=== PATIENT | male | born 1925 | race Caucasian/White ===

== ENCOUNTER 2017-02-01 08:43 | Inpatient (IN) | payer MEDICARE, OTHER ==
[2017-02-01] MEDS ORDERED: Albuterol/Ipratropium NEB.SOL* Albuterol 2.5 MG/Ipratropium 0.5 MG 3 ML INH ONE ×2 (10:13→11:56)
[2017-02-01] MEDS ORDERED: NS 0.9% 1000 ML* 1,000 ML IV ONE (10:14)
--- NOTE | 2017-02-01 10:50 | ED ---
Timbo Alvarado Salem, scribed for Christy Saucedo MD on 02/01/17 at 0951 . Shortness of Breath - HPI Summary HPI Summary: Patient is a 89 y/o male who presents to the ED with a productive cough for 3-4 days. He reports SOB and wheezing, but denies nausea or vomiting. Patient was seen at the urgent care 4 days ago and diagnosed with PNA 2 days ago. He begun a course of abx (Zithromax) for the PNA at that point. Pt denies fevers or chills. Slight decreased appetite. No chest pain. No SOB. Pt is wheezing and using inhaler intermittnet since Sat. No history of lung disease. Patient is also grieving the loss of his who a few days ago. He suspects he got the PNA from his . Patient came into the ED with his daughter and she is worried his PNA will progress as quickly as the pt's . - History of Current Complaint Chief Complaint: EDShortnessOfBreath Hx Obtained From: Patient, Family/Director Of Curriculum And Instruction - Daughter. Onset/Duration: Gradual Onset, Lasting Days, Still Present Current Severity: Moderate Aggrevating Factors: Nothing Alleviating Factors: Nothing Associated Signs & Symptoms: Cough (Productive), Wheezing - Allergy/Home Medications Allergies/Adverse Reactions: Allergies Allergy/AdvReac Type Severity Reaction Status Date / Time No Known Allergies Allergy Verified 02/01/17 09:35 PMH/Surg Hx/FS Hx/Imm Hx Previously Healthy: Yes Endocrine/Hematology History: Reports: Hx Thyroid Disease Denies: Hx Diabetes, Other Endocrine/Hematological Disorders Cardiovascular History: Reports: Hx Hypertension Denies: Hx Congestive Heart Failure, Hx Pacemaker/ICD Respiratory History: Denies: Hx Asthma, Hx Pneumonia GI History: Denies: Other GI Disorders History: Denies: Hx Dialysis, Hx Renal Disease Musculoskeletal History: Reports: Hx Arthritis - hands, lower back, Hx Orthopedic Injury - fx ankle 1952 Sensory History: Reports: Hx Cataracts - slight, Hx Contacts or Glasses Denies: Hx Hearing Aid, Other Sensory Impairments Opthamlomology History: Reports: Hx Cataracts - slight, Hx Contacts or Glasses Denies: Other Sensory Impairments Psychiatric History: Denies: Hx Panic Disorder - Cancer History Cancer Type, 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 - Social History Alcohol Use: None Hx Substance Use: No Substance Use Type: Reports: None Hx Tobacco Use: No Smoking Status (MU): Never Smoked Tobacco Review of Systems Constitutional: Negative Negative: Fever Eyes: Negative ENT: Negative Cardiovascular: Negative Respiratory: Negative Positive: Shortness Of Breath, Cough - Productive. , Other - Wheezing. Gastrointestinal: Negative Positive: Nausea Genitourinary: Negative Musculoskeletal: Negative Skin: Negative Neurological: Negative Negative: Weakness Psychological: Normal All Other Systems Reviewed And Are Negative: Yes Physical Exam Triage Information Reviewed: Yes Vital Signs On Initial Exam: Initial Vitals Temp Pulse Resp BP Pulse Ox 97.9 F 62 24 142/65 97 02/01/17 08:47 02/01/17 08:47 02/01/17 08:47 02/01/17 08:47 02/01/17 08:47 Vital Signs Reviewed: Yes Appearance: Positive: Well-Appearing, No Pain Distress, Well-Nourished Skin: Positive: Warm, Skin Color Reflects Adequate Perfusion, Dry Eyes: Positive: Normal, EOMI ENT: Positive: Pharynx normal, TMs normal Neck: Positive: Supple, Nontender, No Lymphadenopathy Respiratory/Lung Sounds: Positive: Breath Sounds Present - speaking full, easy sentences scattered wheeze all sandhu No rhonci, Wheezes Cardiovascular: Positive: Normal, RRR. Negative: Murmur Abdomen Description: Positive: Nontender, No Organomegaly, Soft Bowel Sounds: Positive: Present Musculoskeletal: Positive: Normal Neurological: Positive: Normal, Sensory/Motor Intact, Alert, Oriented to Person Place, Time Psychiatric: Positive: Normal AVPU Assessment: Alert - Rubio Coma Scale Best Eye Response: 4 - Spontaneous Best Motor Response: 6 - Obeys Commands Best Verbal Response: 5 - Oriented Diagnostics - Vital Signs Vital Signs Temp Pulse Resp BP Pulse Ox 02/01/17 09:25 98.7 F 69 20 129/63 92 02/01/17 09:08 98.7 F 69 20 129/63 93 02/01/17 08:47 97.9 F 62 24 142/65 97 - Laboratory Result Diagrams: 02/01/17 10:45 02/01/17 10:45 Lab Statement: Any lab studies that have been ordered have been reviewed, and results considered in the medical decision making process. - Radiology CXR Radiology Interpretation Completed By: Radiologist - IMPRESSION: 1. Probable small dependent RIGHT pleural effusion. Mild consolidation at the RIGHT lung base may represent atelectasis or pneumonia. 2. Chronic progressive calcified pleural plaques likely reflecting previous asbestos exposure. - EKG 1145 EKG Interpretation: Sinus at 75 bpm. LBBB. PACs. No sinus ST T changes. Re-Evaluation - Re-Evaluation First Eval Re-Evaluation Time: 11:14 Change: Unchanged Second Eval Re-Evaluation Time: 11:47 Change: Unchanged Comment: Informed pt of plans to admit. He is agreeable. Asked for lunch. Course/Dx - Course Assessment/Plan: Pt presents to the ED through ambulatory triage with his daughter in law. Pt reports 4 days of cough, diffuse wheeze. Pt was dx with pna o Wed and started zithromax and MDI. Continue with cough and wheeze. Will check labs, CXR. IVF. nebulizer. reassesment - Diagnoses Provider Diagnoses: Pneumonia, Elevated troponin - Physician Notifications Discussed Care of Patient With: Consult: Dr. Cox (hospitalist) @ 0688. Will admit. change abx to levaquin Instructed by Provider To: Admit As Inpatient Discharge - Discharge Plan Condition: Stable Disposition: ADMITTED TO [facility] The documentation as recorded by the Timbo vásquez Salem accurately reflects the service I personally performed and the decisions made by , Christy Saucedo MD.
[2017-02-01 10:59] LABS: Hematocrit 41 % (42-52); Hemoglobin 13.6 g/dl (14.0-18.0); Mean Corpuscular HGB Conc 33 g/dl (31-36); Mean Corpuscular Hemoglobin 30 pg (27-31); Mean Corpuscular Volume 90 fL (80-94); Mean Platelet Volume 8 um3 (7.4-10.4); Red Blood Count 4.59 10^6/ul (4.0-5.4); Red Cell Distribution Width 14 % (10.5-15); White Blood Count 5.8 10^3/ul (3.5-10.8)
--- NOTE | 2017-02-01 11:08 | RAD ---
INDICATION: Cough, wheezing. Hypertension. COMPARISON: July 21, [address] March 01, 2013 chest radiograph. TECHNIQUE: Dual energy PA and routine lateral views of the chest were obtained. REPORT: Chronic progressive RIGHT greater than LEFT pleural plaques including involvement of the diaphragmatic surface. Probable small dependent RIGHT pleural effusion. Mild consolidation at the RIGHT lung base may represent atelectasis or pneumonia. Negative for cardiomegaly. Unremarkable central pulmonary vasculature and mediastinal contours. IMPRESSION: 1. Probable small dependent RIGHT pleural effusion. Mild consolidation at the RIGHT lung base may represent atelectasis or pneumonia. 2. Chronic progressive calcified pleural plaques likely reflecting previous asbestos exposure.
[2017-02-01 11:17] LABS: Albumin 3.5 g/dL (3.2-5.2); BUN/Creatinine Ratio 21.5 (8-20); Calcium 9.1 mg/dL (8.6-10.3); EGFR African American 118.8 (>60); EGFR Non-African American 92.4 (>60); Globulin 3.7 g/dL (2-4); Potassium 3.9 mmol/L (3.5-5.0); Total Bilirubin 0.6 mg/dL (0.2-1.0); Total Protein 7.2 g/dL (6.4-8.9)
[2017-02-01 11:20] LABS: Troponin I 0.05 ng/mL (<0.04)
[2017-02-01] MEDS ORDERED: Aspirin TAB* 325 MG PO ONE (11:56)
[2017-02-01] MEDS ORDERED: Levofloxacin 500 MG IVPREMIX(* 500 MG/100 ML BAG IVPB ONE (12:23)
[2017-02-01] MEDS ORDERED: NS 0.9% 1000 ML* 1,000 ML IV SCH (12:30)
--- NOTE | 2017-02-01 14:05 | ADMNOTE ---
Subjective Date of Service: 02/01/17 Interval History: ADMISSION HISTORY AND PHYSICAL EXAM: Allergies Allergy/AdvReac Type Severity Reaction Status Date / Time No Known Allergies Allergy Verified 02/01/17 09:35 Home Medications Medication Instructions Recorded Confirmed Type Ascorbic Acid TAB* [Vitamin C 500 mg PO DAILY 03/01/13 02/01/17 History TAB*] Atenolol TAB* [Tenormin TAB*] 50 mg PO DAILY 03/01/13 02/01/17 History Cholecalciferol [Vitamin D] 1,000 unit PO DAILY 03/01/13 02/01/17 History Garlic 2 cap PO DAILY 03/01/13 02/01/17 History Hydrochlorothiazide TAB* 12.5 mg PO DAILY 03/01/13 02/01/17 History [Hydrodiuril TAB*] Levothyroxine TAB* [Synthorid TAB*] 112 mcg PO DAILY 03/01/13 02/01/17 History Childs-3 Fatty Acids [Fish Oil] 1,000 mg PO DAILY 03/01/13 02/01/17 History Vitamin E CAP* [Vitamin E] 400 unit PO DAILY 03/01/13 02/01/17 History HPI: The patient's last week and the calling hours were earlier this week. The patient felt poorly 01/28 and went to Urgent Care. No meds were prescribed. On 01/30 he was couhgin more, with occ yellow sputum. He went back to Urgent Care and was prescribed azithromycin and nebulized meds. He still felt poorly today and his dil drove him here. Family History: Findings - 1 sibling had leukemia. Father age 52. Mother age 77. Social History: Findings - Never smoked, no alcohol abuse. 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 Past Medical History: Findings - Thyroid surgery 1952, R knee arthroscopic sx, L ankle sx, HT Review of Systems - Measurements Intake and Output: Intake and Output Last 24 Hours 01/30/17 01/31/17 02/01/17 02/02/17 06:59 06:59 06:59 06:59 Intake Total 1000 Balance 1000 Weight 220 lb Intake: IV Fluids 1000 - Review of Systems Constitutional Symptoms: Negative: Weight Gain, Weight Loss, Weakness, Fatigue, Fever, Night Sweats, Unexplained Falls, Other Dermatology: Positive: Normal HEENT: Positive: Normal Eyes: Positive: Normal Thyroid: Positive: Primary Hypothyroidism Pulmonary: Positive: Cough, Sputum, Shortness of Breath Cardiology: Positive: Normal Gastroenterology: Positive: Normal Genital - Urinary: Positive: Other - Chronic Hollis catheter Musculoskeletal: Positive: Joint Pain Endocrinology: Positive: Obesity Hematologic/Lymphatic: Negative: Anemia, Easy Brusing, Hx Leukemia, Hx Lymphoma, Use of Anticoagulant, Use of Antiplatelet Drugs, Other Neurology: Positive: Normal Psychiatry: Positive: Normal Allergic/Immunologic: Negative: Hx Anaphylaxis, Hx Angioedema, Hx Environmental, Hx Seasonal, Athsma, Hx HIV, Immunocompromise, Swollen Glands LymphNodes, Other Objective Active Medications: Ascorbic Acid (Vitamin C Tab*) 500 mg PO DAILY [facility] Atenolol (Tenormin Tab*) 50 mg PO DAILY JAVI Guaifenesin (Robitussin*) 10 ml PO QID [facility] Levofloxacin (Levaquin Tab*) 500 mg PO Q24H [facility] Levothyroxine Sodium (Synthroid Tab*) 112 mcg PO DAILY [facility] Vital Signs 02/01/17 02/01/17 02/01/17 08:47 09:08 09:18 Temperature 97.9 F 98.7 F Pulse Rate 62 69 Respiratory 24 20 Rate Blood Pressure 142/65 129/63 129/63 (mmHg) O2 Sat by Pulse 97 93 Oximetry 02/01/17 02/01/17 02/01/17 09:19 09:25 09:30 Temperature 98.7 F Pulse Rate 68 69 71 Respiratory 20 Rate Blood Pressure 129/63 129/54 (mmHg) O2 Sat by Pulse 93 92 94 Oximetry 02/01/17 02/01/17 02/01/17 10:00 10:46 11:00 Temperature Pulse Rate 68 69 69 Respiratory Rate Blood Pressure 157/82 145/66 129/54 (mmHg) O2 Sat by Pulse 94 94 93 Oximetry 02/01/17 02/01/17 02/01/17 11:24 11:31 12:00 Temperature Pulse Rate 67 67 76 Respiratory 16 Rate Blood Pressure 117/54 165/69 (mmHg) O2 Sat by Pulse 100 100 96 Oximetry 02/01/17 02/01/17 02/01/17 12:15 12:30 13:00 Temperature Pulse Rate 77 82 89 Respiratory 18 Rate Blood Pressure 154/60 154/68 (mmHg) O2 Sat by Pulse 100 100 97 Oximetry 02/01/17 13:30 Temperature Pulse Rate 90 Respiratory Rate Blood Pressure 132/79 (mmHg) O2 Sat by Pulse 97 Oximetry Oxygen Devices in Use Now: None Appearance: Alert, partly up on ED stretcher. In fair spirits. Looks comfortable. Infrequent mild cough during my visit. Eyes: No Scleral Icterus Ears/Nose/Mouth/Throat: Clear Oropharnyx, Mucous Membranes Moist Neck: NL Appearance and Movements; NL JVP, No Thyroid Enlargement, Masses Respiratory: Symmetrical Chest Expansion and Respiratory Effort, Clear to Auscultation, Clear to Percussion Cardiovascular: NL Sounds; No Murmurs; No JVD, RRR, No Edema, - Abdominal: NL Sounds; No Tenderness; No Distention, No Hepatosplenomegaly, - Extremities: No Edema, No Clubbing, Cyanosis, - Skin: No Rash or Ulcers, No Nodules or Sclerosis, - Neurological: Alert and Oriented x 3, NL Sensation - No tremor. Oriented. Result Diagrams: 02/01/17 10:45 02/01/17 10:45 Assess/Plan/Problems-Billing Assessment: - Patient Problems (1) Pneumonia Current Visit: Yes Status: Acute Code(s): J18.9 - PNEUMONIA, UNSPECIFIED ORGANISM SNOMED Code(s): 510733295 Comment: Difficult to read X-ray due to asbestosis plaquing. Possible azithromycin failure, change to levofloxacin. Guaifenesin, PRN Duoneb. (2) HTN (hypertension) Current Visit: Yes Status: Acute Code(s): I10 - ESSENTIAL (PRIMARY) HYPERTENSION SNOMED Code(s): 20668636 Comment: Continue atenolol, hold thiazide. (3) Asbestos-induced pleural plaque Current Visit: Yes Status: Acute Code(s): J92.0 - PLEURAL PLAQUE WITH PRESENCE OF ASBESTOS SNOMED Code(s): 768909416 Comment: Patient informed likely has X-ray changes related to asbestis exposure. (4) Hypothyroid Current Visit: Yes Status: Acute Code(s): E03.9 - HYPOTHYROIDISM, UNSPECIFIED SNOMED Code(s): 05775313 Comment: Continue levothyroxine. TSH add on requested.
[2017-02-01] MEDS ORDERED: Albuterol/Ipratropium NEB.SOL* Albuterol 2.5 MG/Ipratropium 0.5 MG 3 ML INH PRN (14:11)
[2017-02-01] MEDS ORDERED: Atenolol TAB* 50 MG ONE (16:07)
[2017-02-01] MEDS ORDERED: Ascorbic Acid TAB* 500 MG ONE (16:08)
[2017-02-01] MEDS: guaiFENesin LIQ* 100 MG/5 ML UDC PO SCH ×2 (16:15→21:37)
[2017-02-01] MEDS: Atenolol TAB* 50 MG PO SCH (16:16)
[2017-02-01] MEDS: Ascorbic Acid TAB* 500 MG PO SCH (16:16)
[2017-02-01] MEDS: Levothyroxine TAB* 112 MCG TAB PO SCH (16:16)
[2017-02-01] MEDS: Enoxaparin(*) 40 MG/0.4 ML SYR SUBCUT SCH (17:57)
--- NOTE | 2017-02-01 18:59 | PN ---
Progress Note - Progress Note Note: Daughter Lara Colon is his SDM.
[2017-02-02] MEDS ORDERED: Benzocaine/Menthol LOZ* 1 LOZENGE MT PRN (03:39)
[2017-02-02] MEDS ORDERED: guaiFENesin/CODIEN 100MG-10MG* 5 ML UDC PO PRN (03:49)
[2017-02-02] MEDS ORDERED: Benzonatate CAP* 100 MG PO PRN (03:49)
[2017-02-02] MEDS: Levothyroxine TAB* 112 MCG TAB PO SCH (05:54)
[2017-02-02] MEDS: Atenolol TAB* 50 MG PO SCH (11:19)
[2017-02-02] MEDS: Levofloxacin TAB* 500 MG PO SCH (11:19)
[2017-02-02] MEDS: Ascorbic Acid TAB* 500 MG PO SCH (11:19)
--- NOTE | 2017-02-02 11:22 | PN ---
Subjective Date of Service: 02/02/17 Interval History: Still has cough occ long spells, small amt sputum. Appetite OK. NO chest pain. Family History: Findings - 1 sibling had leukemia. Father age 52. Mother age 77. Social History: Findings - Never smoked, no alcohol abuse. 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 Past Medical History: Findings - Thyroid surgery 195, R knee arthroscopic sx, L ankle sx, HT Objective Active Medications: Albuterol/Ipratropium (Duoneb (Albuterol 2.5 Mg/Ipratropium 0.5 Mg)) 1 neb INH Q4H PRN PRN Reason: SOB/WHEEZING Ascorbic Acid (Vitamin C Tab*) 500 mg PO DAILY [facility] Last Admin: 02/01/17 16:16 Dose: 500 mg Atenolol (Tenormin Tab*) 50 mg PO DAILY [facility] Last Admin: 02/01/17 16:16 Dose: 50 mg Benzonatate (Tessalon Cap*) 200 mg PO TID PRN PRN Reason: COUGH Last Admin: 02/02/17 03:58 Dose: 200 mg Enoxaparin Sodium (Lovenox(*)) 40 mg SUBCUT Q24H [facility] Last Admin: 02/01/17 17:57 Dose: 40 mg Guaifenesin (Robitussin*) 10 ml PO QID [facility] Last Admin: 02/01/17 21:37 Dose: 10 ml Guaifenesin/Codeine Phosphate (Robitussin Ac 100mg-10mg*) 5 ml PO Q4H PRN PRN Reason: COUGH Last Admin: 02/02/17 03:58 Dose: 5 ml Levofloxacin (Levaquin Tab*) 500 mg PO Q24H [facility] Levothyroxine Sodium (Synthroid Tab*) 112 mcg PO 0600 [facility] Last Admin: 02/02/17 05:54 Dose: 112 mcg Throat Lozenges (Chloraseptic Iveth*) 1 iveth MT Q2H PRN PRN Reason: SORE THROAT Vital Signs 02/01/17 02/01/17 02/01/17 12:30 13:00 13:30 Temperature Pulse Rate 82 89 90 Respiratory Rate Blood Pressure 154/60 154/68 132/79 (mmHg) O2 Sat by Pulse 100 97 97 Oximetry 02/01/17 02/01/17 02/01/17 14:00 14:30 14:38 Temperature 97.5 F Pulse Rate 93 91 87 Respiratory 20 Rate Blood Pressure 164/83 136/61 139/68 (mmHg) O2 Sat by Pulse 91 93 98 Oximetry 02/01/17 02/01/17 02/01/17 19:43 20:00 23:04 Temperature 98.7 F 98.2 F Pulse Rate 61 58 Respiratory 16 19 16 Rate Blood Pressure 118/49 122/52 (mmHg) O2 Sat by Pulse 97 97 Oximetry 02/02/17 03:41 Temperature 98.1 F Pulse Rate 58 Respiratory 16 Rate Blood Pressure 127/58 (mmHg) O2 Sat by Pulse 96 Oximetry Oxygen Devices in Use Now: None Appearance: Alert, sitting up in bed. Sl anxious but otherwise looks comfortable. Eyes: No Scleral Icterus Ears/Nose/Mouth/Throat: Clear Oropharnyx, Mucous Membranes Moist Neck: NL Appearance and Movements; NL JVP, No Thyroid Enlargement, Masses Respiratory: Symmetrical Chest Expansion and Respiratory Effort, Clear to Auscultation, Clear to Percussion Cardiovascular: NL Sounds; No Murmurs; No JVD, RRR, No Edema, - Extremities: No Edema, No Clubbing, Cyanosis, - Skin: No Rash or Ulcers, No Nodules or Sclerosis, - Neurological: Alert and Oriented x 3, NL Sensation, - - Walks well with walker. Result Diagrams: 02/01/17 10:45 02/01/17 10:45 Assess/Plan/Problems-Billing Assessment: - Patient Problems (1) Pneumonia Current Visit: Yes Status: Acute Code(s): J18.9 - PNEUMONIA, UNSPECIFIED ORGANISM SNOMED Code(s): 351934805 Comment: Difficult to read X-ray due to asbestosis plaquing. Possible azithromycin failure, continue levofloxacin. Guaifenesin, benzonatate scheduled , PRN codeine. PRN Duoneb. Patient walked a short block with his walker without any difficulty. (2) HTN (hypertension) Current Visit: Yes Status: Acute Code(s): I10 - ESSENTIAL (PRIMARY) HYPERTENSION SNOMED Code(s): 96295424 Comment: Continue atenolol, hold thiazide. (3) Asbestos-induced pleural plaque Current Visit: Yes Status: Acute Code(s): J92.0 - PLEURAL PLAQUE WITH PRESENCE OF ASBESTOS SNOMED Code(s): 276510360 Comment: Patient informed likely has X-ray changes related to asbestis exposure. (4) Hypothyroid Current Visit: Yes Status: Acute Code(s): E03.9 - HYPOTHYROIDISM, UNSPECIFIED SNOMED Code(s): 39913417 Comment: Continue levothyroxine. TSH add on wnl.
[2017-02-02] MEDS: guaiFENesin LIQ* 100 MG/5 ML UDC PO SCH ×4 (11:30→21:38)
[2017-02-02] MEDS: Benzonatate CAP* 100 MG PO SCH ×2 (14:43→21:36)
[2017-02-02] MEDS: Enoxaparin(*) 40 MG/0.4 ML SYR SUBCUT SCH (16:46)
[2017-02-02] MEDS ORDERED: Docusate CAP* 100 MG PO PRN (22:29)
[2017-02-02] MEDS ORDERED: Senna TAB PO PRN (22:29)
[2017-02-02] MEDS ORDERED: Polyethylene Glycol 3350* 17 GM PACKET PO PRN (22:29)
[2017-02-03] MEDS: Levothyroxine TAB* 112 MCG TAB PO SCH (05:18)
[2017-02-03] MEDS: Ascorbic Acid TAB* 500 MG PO SCH (08:33)
[2017-02-03] MEDS: Levofloxacin TAB* 500 MG PO SCH (08:33)
[2017-02-03] MEDS: Benzonatate CAP* 100 MG PO SCH (08:33)
[2017-02-03] MEDS: guaiFENesin LIQ* 100 MG/5 ML UDC PO SCH (08:33)
[2017-02-03] MEDS: Atenolol TAB* 50 MG PO SCH (08:33)
[2017-02-03 08:38] VITALS: BP 107/49
--- NOTE | 2017-02-03 10:22 | PN ---
"Progress Note - Progress Note Note: Search Terms: michelle lewis, 1925 Search Date: 02/03/2017 10:22:16 AM This report was requested by: Norman Cox | Reference #: [id number] There are no results for the search terms that you entered."
--- NOTE | 2017-02-03 10:26 | PN ---
Progress Note - Progress Note Note: Time spent on discharge 50 minutes.
--- NOTE | 2017-02-04 06:17 | DS ---
CC: Dr. Diaz DISCHARGE SUMMARY: DATE OF ADMISSION: 02/01/17 DATE OF DISCHARGE: 02/03/17 HISTORY: This 89-year-old man presented with cough and yellow sputum production. I note that his wi fe a few days before his admission and he had had calling hours during the few days before admi ssion as well. The patient had been given azithromycin as an outpatient at urgent care and took it for couple of da ys, but was not feeling any better. Rest of the history is detailed in the admission note. The patient was treated with levofloxacin and bronchodilators. He did quite well in the hospital. He still has some sputum production and some cough. He was able to ambulate in the augustin quite well on room air. He and his daughter were both quite anxious about his overall condition, but he was ce rtainly fit to go home and slowly but steadily improving. I note he was afebrile throughout his hos pital stay. His appetite was good. His cough is improved after being prescribed benzonatate and gu aifenesin with codeine. On the day of discharge, his lungs were clear. He was alert and looked comfortable. He did not cou gh at all during my visit. The patient and his daughter remained understandably anxious. They felt confident they can manage him at home. He is going to have some outpatient physical therapy at the family's request. FINAL DIAGNOSES: 1. Pneumonia. 2. Hypertension. 3. Asbestosis induced pleural plaque. 4. Hypothyroidism. DISCHARGE MEDICATIONS: 1. Benzonatate 200 mg t.i.d. to change to p.r.n. when he is better. 2. Levofloxacin 500 mg daily for 5 days. 3. Polyethylene glycol 17 g daily p.r.n. 4. Guaifenesin with codeine 100/10, 5 mL every 4 hours p.r.n. 5. Vitamin E 400 units daily. 6. Vitamin D 1000 units daily. 7. Garlic 2 capsules daily. 8. Ascorbic acid 500 mg daily. 9. [place] 3 fatty acids 1000 mg daily. 10. Hydrochlorothiazide 12.5 mg daily. 11. Levothyroxine 112 mcg daily. 12. Atenolol 50 mg daily. [id number]/[facility] #: [id number]
== END 2017-02-03 12:45 | disposition home or self-care (01) | DRG 195 ==
LOC: ED 08:43 → MEDTELE 12:23
PROVIDERS: ADMIT Internal Medicine; ATTEND Internal Medicine
DX: J18.9 Pneumonia, unspecified organism (principal); I44.7 Left bundle-branch block, unspecified; I10 Essential (primary) hypertension; J92.0 Pleural plaque with presence of asbestos; E03.9 Hypothyroidism, unspecified; E66.9 Obesity, unspecified; M19.049 Primary osteoarthritis, unspecified hand; M47.9 Spondylosis, unspecified; Z85.51 Personal history of malignant neoplasm of bladder
CPT/HCPCS: 36415; 71020; 80053; 82550; 83605; 83735; 83880; 84443; 84484; 85025; 93005; 94640; 94760; A9270-GY; J1650; J1956